=== PATIENT | male | born 1950 | race Caucasian/White ===

== ENCOUNTER 2016-11-02 13:56 | Emergency (ER) | payer BC ==
[2016-11-02 14:46] LABS: BASOPHILS % (AUTO) 0 % (0-3); EOSINOPHILS % (AUTO) 2 % (0-9); HEMATOCRIT 42 % (39-53); MEAN CORPUSCULAR HGB CONC 35.1 gm/dl (32.0-36.0); MEAN CORPUSCULAR VOLUME 90 fL (80-100); MONOCYTES % (AUTO) 10.4 % (0-12); NEUTROPHILS % (AUTO) 70.3 % (37-80)
[2016-11-02 14:52] LABS: CALCIUM 8.4 mg/dl (8.5-10.1)
[2016-11-02 15:02] VITALS: TEMP 98.9
[2016-11-02] MEDS ORDERED: LORAZEPAM 2 MG/ML SOL ONE (15:10)
[2016-11-02] MEDS ORDERED: LORAZEPAM 2 MG/ML SOL IM SCH ×2 (15:15→15:45)
[2016-11-02 15:23] VITALS: RESP 16
[2016-11-02 18:04] VITALS: BP 150/79; PULSE 68; O2SAT 97
== END 2016-11-02 18:00 | disposition home or self-care (01) ==
LOC: ED 13:56
DX: R42 Dizziness and giddiness (principal); H93.19 Tinnitus, unspecified ear; R20.0 Anesthesia of skin; R20.2 Paresthesia of skin
CPT/HCPCS: 99285 ×3; 70551; 72141; 80048; 85025; 93005; J2060; 36415; 70030; 96372; 99284

== ENCOUNTER 2017-02-20 08:56 | Day surgery (SDC) | payer BC ==
[~2017-02-20 08:56] MED LIST: LIDOCAINE HCL 1% MPF SOL ONE; PROPOFOL 500 MG/50 ML EMU IV ONE
[2017-02-20 10:05] VITALS: TEMP 97.4
[2017-02-20 12:17] VITALS: RESP 18
[2017-02-20 12:32] VITALS: BP 149/84; PULSE 66; O2SAT 95
== END 2017-02-20 12:36 | disposition home or self-care (01) ==
LOC: SURG 08:56
PROVIDERS: ATTEND Internal Medicine Gastroenterology
DX: R13.10 Dysphagia, unspecified (principal); R14.0 Abdominal distension (gaseous); R14.2 Eructation; Q39.8 Other congenital malformations of esophagus; K22.2 Esophageal obstruction; K44.9 Diaphragmatic hernia without obstruction or gangrene; K57.10 Diverticulosis of small intestine without perforation or abscess without bleeding; K21.0 Gastro-esophageal reflux disease with esophagitis
CPT/HCPCS: 43239; 43249; 99001; J2001; J2704